=== PATIENT | male | born 1955 | race Caucasian/White ===

== ENCOUNTER 2019-09-05 15:43 | Emergency (ER) | payer BC, SELFPAY ==
[2019-09-05 15:45] VITALS: BP 153/83; PULSE 73; RESP 17; TEMP 36.7; O2SAT 95; BMI 27.8
--- NOTE | 2019-09-05 16:38 | ED.DCSUM_ITS ---
History of Present Illness Informant: Patient, Significant Other Occurred: Today Mechanism/Context: Injury Onset: Today Context: Sudden Onset Timing: Continuous Quality of Pain: Sharp Location: Right hand Current Severity: Moderate Maximum Severity: Moderate Worsened by: nothing Relieved by: nothing Associated Symptoms: Negative for: Parasthesia, Weakness, Loss of Funtion Narrative: 64-year-old [id number] male presents with a right hand laceration that occurred just prior to arrival when he was kicked by his scalp. He denies any other injuries. He was unable to get bleeding to stop via manual pressure. He is not on blood thinners. No numbness or tingling. No weakness. Unknown last tetanus. Tetanus Immunization: Unknown Prior similar symptoms: No Recent Illness/Hospitalization: No <Wally Carey - Last Filed: 09/05/19 17:39> <Collin Alfonso - Last Filed: 09/05/19 21:03> Chief Complaint: Laceration Past Medical History Prior records reviewed: Yes Past Medical History: None Surgical History: no surgical history Lives: With Family Smoking Status: Never smoker Alcohol: Occasional Drugs: None <Wally Carey - Last Filed: 09/05/19 17:39> <Collin Alfonso - Last Filed: 09/05/19 21:03> - Allergies and Home Meds Allergies/Adverse Reactions: Allergies No Known Allergies Allergy (Verified 09/05/19 15:45) Primary Care Physician: Navneet Rose MD [Primary Care Provider] - 10-14 Days suture removal Review of Systems All systems negative except as indicated General: Denies: Chills, Fever, Malaise Eyes: Denies: Visual changes - bilaterally, Blurred Vision - bilaterally, Diplopia ENT: Denies: Rhinorrhea, Sore throat Cardiovascular: Denies: Chest pain, Palpitations Respiratory: Denies: Dyspnea, Cough, Sputum, Dyspnea on exertion Gastrointestinal: Denies: Abdominal pain, Nausea, Vomiting, Diarrhea Genitourinary: Denies: Dysuria, Hematuria, Frequency Musculoskeletal: Reports: Extremity Pain. Denies: Myalgias, Arthralgias, Neck pain, Back pain, Swelling Skin: Reports: Abrasions. Denies: Rash, Abscess, Wounds Neurological: Denies: Headache, Weakness, Parasthesia, Numbness <Wally Carey - Last Filed: 09/05/19 17:39> Physical Exam Vital Signs/Narrative: Vital Signs Temp Pulse Resp BP Pulse Ox 09/05/19 15:45 98.0 F 73 17 153/83 H 95 Inital Vital Signs reviewed: Yes Right Hand: - - 5 cm laceration dorsum of right hand. Mild active bleeding. No pulsatile bleeding. No bony tenderness surrounding the area. Normal range of motion of all 5 fingers and of his wrist. General: Well nourished, Well developed Head: Normocephalic, Atraumatic Eyes: Perrl, EOMI ENT: No Trauma, Moist Mucous Membranes Neck: Nontender, Full ROM Cardiovascular: Regular rate, Regular rhythm Respiratory: No distress, CTA bilaterally, Chest nontender Abdomen: Soft, Nontender, Nondistended, Normal bowel sounds, No masses Back: Nontender Skin: Normal color, No rash, Trauma Neurological: Alert, Oriented x3 Psychological: Normal affect, Normal Mood <Wally Carey - Last Filed: 09/05/19 17:39> Vital Signs/Narrative: Vital Signs Pulse Resp BP Pulse Ox 09/05/19 17:04 69 16 116/62 96 09/05/19 16:59 69 16 116/76 96 <Collin Alfonso - Last Filed: 09/05/19 21:03> Diagnostic/Tx/Re-eval - Medical Decision Making Patient refused x-ray. Tetanus updated. Laceration was closed under sterile conditions with Betadine prep lidocaine was used locally for anesthesia. Thoroughly irrigated sterile saline via pressure wash syringe. No evidence of arterial bleeding foreign body tendon or ligament injury. Total of 6 sutures were used. Simple interrupted. Nylon. Number 4-0. Patient tolerated well. Will be discharged with a dressing advised on proper wound care will be placed on Keflex as this was a dirty injury. Follow-up in 10 to 14 days for removal of sutures. Return precautions given. <Wally Carey - Last Filed: 09/05/19 17:39> - Medical Decision Making Patient was seen with me. I did a [id number] evaluation with the patient. Patient presents with a laceration to his right hand that occurred today. Patient states he was kicked by his cow. Patient is unsure of his last tetanus. Patient denies any paresthesias or weakness. Vital signs are stable. Patient is afebrile. Patient is in no acute distress. Skin is warm dry. There is a 5 cm full-thickness linear laceration over the dorsal aspect of the right hand. There is no active bleeding noted. There are no foreign bodies. There is no bony crepitance or step-off. Neurovascular exam is intact. Patient declined x- rays. The wound was cleaned and irrigated with copious amounts of normal saline. The wound was closed with 6 simple interrupted #4-0 nylon sutures under sterile technique. Sterile gauze dressing was applied. Patient was given a prescription for Keflex. Patient was instructed to follow-up with his primary care physician in 7-10 days for wound check and suture removal. Patient und erstood and was agreeable with the plan. All questions were answered. <Collin Alfonso - Last Filed: 09/05/19 21:03> Procedures - Lacerations No standard instances Length: 1.97 in Depth: Skin Shape: Linear Prep: Sterile Conditions, Betadine Laceration Repair: Lidocaine, Local, Nerve block, Sutures, Wound explored Irrigated (ml): 120 Number of Sutures/Foster: 6 Suture Information: Ethilon, Simple, 4-0 <Wally Carey - Last Filed: 09/05/19 17:39> ED Disposition <Wally Carey - Last Filed: 09/05/19 17:39> <Collin Alfonso - Last Filed: 09/05/19 21:03> - Plan for ED Patient: Disposition: Home or Assisted Living Diagnosis: Laceration of right hand Instructions: LACERATION, Extrem (Suture, Staple or Tape) Prescriptions: Cephalexin [Keflex] 500 mg PO Q6 #40 cap Transmission Status: Received by [id number] [facility] Referrals: Navneet Rose MD [Primary Care Provider] - 10-14 Days suture removal
[2019-09-05] MEDS: Diphth,Pertuss(Acell),Tet Vac 0.5 ML Vial IM (16:52)
[2019-09-05 16:59] VITALS: BP 116/76; PULSE 69; RESP 16; O2SAT 96
[2019-09-05 17:04] VITALS: BP 116/62; PULSE 69; RESP 16; O2SAT 96
== END 2019-09-05 17:05 | disposition home or self-care (01) ==
LOC: ED 16:44
PROVIDERS: Emergency Provider Physician Assistant Medical; PCP Family Medicine
DX: S61.411A Laceration without foreign body of right hand, initial encounter (principal); Z23 Encounter for immunization; W55.22XA Struck by cow, initial encounter; Y93.89 Activity, other specified; Y92.89 Other specified places as the place of occurrence of the external cause; Y99.8 Other external cause status
CPT/HCPCS: 12002; 90471; 90715; 99283

== ENCOUNTER 2020-03-26 12:39 | Emergency (ER) | payer BC, SELFPAY ==
[2020-03-26 12:40] VITALS: BP 151/83; PULSE 65; RESP 17; TEMP 36.4; O2SAT 98; BMI 25.4
--- NOTE | 2020-03-26 12:56 | ED.VIS.GEN ---
History of Present Illness Chief Complaint: Head Injury Informant: Patient, Significant Other Onset: Today - Patient had a mechanical fall at 0600. Context: Sudden Onset Timing: Intermittent Quality: Presently no discomfort to his head, but reports neck stiffness Location: Contusion left brow and stiffness neck Current Severity: Mild Maximum Severity: Moderate Worsened by: Initial trauma Relieved by: Nothing Associated Symptoms: Initially nausea Narrative: A 65-year-old male with type 2 diabetes and hypertension who presents with closed head injury. He had mechanical fall at 0600. He was not knocked out. He was not dazed. He is not on an antiplatelet or anticoagulant. He did report nausea without vomiting. He initially did not have neck pain. Now reports neck stiffness. He denies paresthesia, anesthesia motors. He denies cardiac or respiratory symptoms. He denies double vision, blurred vision or loss of vision. He denies decreased hearing, ringing in his ears or ear pain. He denies drainage from his ears. Denies drainage from his nose. Prior similar symptoms: No Recent Illness/Hospitalization: Yes - August 2019 right hand laceration - Past Medical History (1) History of type 2 diabetes mellitus Status: Acute (2) History of hypertension Status: Acute Past Medical History - Allergies and Home Meds Allergies/Adverse Reactions: Allergies No Known Allergies Allergy (Verified 03/26/20 12:39) Primary Care Physician: Navneet Rose MD [Primary Care Provider] - Prior records reviewed: Yes Surgical History: no surgical history Lives: Spouse/ Significant Other Smoking Status: Never smoker Alcohol: Rare Drugs: None Review of Systems General: Denies: Chills, Fever, Malaise Eyes: Denies: Visual changes - bilaterally, Blurred Vision - bilaterally, Diplopia ENT: Reports: - - And read HPI. Denies: Bilateral ear pain, Rhinorrhea, Sore throat Cardiovascular: Denies: Chest pain, Palpitations Respiratory: Denies: Dyspnea, Cough, Dyspnea on exertion Gastrointestinal: Reports: Nausea. Denies: Abdominal pain, Vomiting, Diarrhea, Constipation, Melena, Hematochezia, -, - Musculoskeletal: Reports: Neck pain. Denies: Myalgias, Arthralgias, Back pain, Swelling, Extremity Pain Skin: Reports: Wounds. Denies: Rash, Abscess Neurological: Denies: Headache, Weakness, Parasthesia, Numbness Psych: Denies: Depression, Anxiety Hematologic: Denies: Easy bruising, Easy bleeding Allergy: Denies: Uticaria, Swelling of the mouth Physical Exam Vital Signs/Narrative: Vital Signs Temp Pulse Resp BP Pulse Ox 03/26/20 12:40 97.6 F L 65 17 151/83 H 98 Inital Vital Signs reviewed: Yes General: Well nourished, Well developed, No Acute Distress Head: Normocephalic, Atraumatic Eyes: Perrl, EOMI, - - There is soft tissue swelling with hematoma in the proximity of the left eyebrow. There is ecchymosis of the left upper eyelid. The levator mechanism is intact. There is no subconjunctival hemorrhage. Patient does have an APD noted. The APD is noted on the right. This is due to a prior clot. There is no hyperesthesia in focal nerve. There is no step-off of the infraorbital rim with palpation. There is no evidence of entrapment and patient denies diplopia with central gaze or upward gaze. ENT: Moist mucous membranes, No rhinorrhea, TM's clear, - - No septal deviation hematoma.. Negative for: Nasal congestion, Sinus tenderness Neck: Supple, Nontender, No lymphadenopathy, No JVD Cardiovascular: Regular rate, Regular rhythm, No murmurs, Normal S1, Normal S2 Respiratory: No distress, CTA bilaterally, Chest nontender Abdomen: Soft, Nontender, Nondistended, Normal bowel sounds Back: Nontender, Normal Inspection Extremities: Nontender, No edema Skin: Normal color, No rash Neurological: Alert, Oriented x3, Cranial nerves II-XII grossly intact, Normal Strength, Normal Sensation, Normal DTR, - - No clonus or Babinski sign right or left. Cerebellar testing is normal. Psychological: Normal affect, Normal Mood Diagnostic/Tx/Re-eval - Medical Decision Making She presents because family members who are in the healthcare profession recommended he have an evaluation. Patient was informed based on the [place] CT head rule imaging is not indicated. Since the event occurred 7 hours ago with a normal neurologic exam and only initial complaint of nausea imaging was not obtained. Tetanus is up-to-date. Patient be discharged home with appropriate home-going instructions. ED Disposition - Plan for ED Patient: Disposition: Home or Assisted Living Diagnosis: Concussion without loss of consciousness, initial encounter, Contusion of face, Hematoma left upper eyelid, Abrasion of forehead Instructions: ED Concussion, ED Abrasion Referrals: Navneet Rose MD [Primary Care Provider] - As Needed
== END 2020-03-26 13:12 | disposition home or self-care (01) ==
PROVIDERS: Emergency Provider Emergency Medicine; PCP Family Medicine
DX: S06.0X0A Concussion without loss of consciousness, initial encounter (principal); S00.12XA Contusion of left eyelid and periocular area, initial encounter; S00.81XA Abrasion of other part of head, initial encounter; E11.9 Type 2 diabetes mellitus without complications; I10 Essential (primary) hypertension; W18.30XA Fall on same level, unspecified, initial encounter; Y93.89 Activity, other specified; Y92.89 Other specified places as the place of occurrence of the external cause; Y99.8 Other external cause status
CPT/HCPCS: 99282

== ENCOUNTER 2021-05-04 15:01 | Emergency (ER) | payer MEDICARE, SELFPAY ==
[2021-05-04 15:02] VITALS: BP 141/113; PULSE 88; RESP 16; TEMP 36.3; O2SAT 97; BMI 26.4
--- NOTE | 2021-05-04 15:37 | EX.ED.UPPERE ---
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 Pacing caused a laceration to the palmar aspect of his left long finger distal phalanx. This occurred within the last several hours. His tetanus is up-to-date from 1 to 2 years ago. Patient is right-hand dominant. Denies any other injuries. Tetanus Immunization: <5 years Prior similar symptoms: Yes Recent Illness/Hospitalization: No PFSH PFSH Allergy/AdvReac Type Severity Reaction Status Date / Time No Known Allergies Allergy Verified 05/04/21 15:04 Social History Smoking Status: Never smoker ROS ROS ED ROS Narrative Denies recent illness. Review of Systems ROS Unobtainable: Denies due to encephalopathy Constitutional Constitutional ED: Denies fever(s) Eyes Eyes: Denies change in vision ENT ENT ED: Denies ear pain Cardiovascular Cardiovascular: Denies chest pain Respiratory/Chest Respiratory/Chest: Denies dyspnea Gastrointestinal Gastrointestinal: Denies abdominal pain Genitourinary Genitourinary ED: Denies dysuria Musculoskeletal Musculoskeletal: Denies myalgias Integumentary Denies rash Neurologic Neurologic: Denies headache(s) Psychiatric Psychiatric: Denies depression Endocrine Endocrinology: Denies polyuria Hematologic/Lymphatic Hematologic/Lymphatic: Denies easy bruising Allergic/Immunologic Allergic/Immunologic ED: Denies urticaria EXAM Physical Exam Narrative Exam Narrative: 6-year-old male no acute distress. HEENT, neck, heart, lung abdominal exam unremarkable. Moving all 4 extremities. Neurovascular intact. Left hand long finger distal phalanx palmar aspect there is a small semicircular laceration which does not need to be repaired. There is no active bleeding. No foreign body. He has full range of motion. No bony tenderness. No signs of infection. Patient I discussed he will clean it we will dress it it does not need to be repaired. Const Vital Signs: 05/04/21 15:02 Temperature 97.4 F L Temperature Source Temporal Pulse Rate 88 Respiratory Rate 16 Blood Pressure 141/113 H Blood Pressure Mean 122 Pulse Ox 97 Oxygen Delivery Method Room Air Positive well nourished and well developed; Negative for obese, cachectic, contractures or unkempt General Appearance ED: well developed and NAD; Negative for unkempt, cachectic or contractures Nutritional Appearance: Negative for cachectic or obese HEENT Reports moist mucous membranes normocephalic and atraumatic Eyes PERRL and EOMs intact bilaterally Neck full ROM and supple General: Negative for tenderness Chest Wall inspection of chest normal and palpation of chest normal Resp normal respiratory effort and clear to auscultation bilaterally Effort and Inspection: Negative for pain with movement Auscultation: Negative for rales or rhonchi Back/Spine no CVA tenderness General Back: Negative for CVA tenderness Extremity normal to inspection and full ROM Extremity Narrative: Semicircular laceration left long finger palmar aspect distal phalanx. No foreign body. Full range of motion. Neurovascular intact. No infection. No bleeding. Neuro oriented x3 and moves all extremities Sensorium / Orientation: alert, oriented to person, oriented to place and oriented to time; Negative for orientation impaired, lethargic or stuporous Motor Exam: strength 5/5 throughout Psych mental status grossly normal Appearance: Negative for unkempt Mood & Affect: Negative for depressed Skin Lesions: no lesions Rashes: no rashes Trauma: laceration MDM MDM MDM Narrative Medical decision making narrative: Left long finger laceration does not need to be repaired. There is no bleeding there is good approximation. Wound to be cleaned and dressed antibiotic ointment applied. Patient was instructed on wound care. Return if any signs of infection. Discharge Plan Triage Chief Complaint: Laceration ED Provider: Candido Au Dx/Rx/DC Orders Clinical Impression: History of type 2 diabetes mellitus, Laceration of left hand Instructions: ED Laceration Small or ... Primary Care Provider: Navneet Rose Referrals: Navneet Rose MD [Primary Care Provider] - 1 Week if not improving Activity Restrictions/Additional Instructions: Keep wound clean and dry. If our dressings are dry and clean you can leave it on for 3 to 4 days. Then begin cleaning it daily with soap and water and apply antibiotic ointment and keep it covered. Any signs of infection such as redness, swelling, pus Disposition Disposition: Home, Self Care
[2021-05-04 15:55] VITALS: PULSE 90; RESP 18; O2SAT 97
== END 2021-05-04 16:00 | disposition home or self-care (01) ==
PROVIDERS: Emergency Provider Emergency Medicine; PCP Family Medicine
DX: S61.213A Laceration without foreign body of left middle finger without damage to nail, initial encounter (principal); E11.9 Type 2 diabetes mellitus without complications; W23.0XXA Caught, crushed, jammed, or pinched between moving objects, initial encounter; Y93.89 Activity, other specified; Y92.79 Other farm location as the place of occurrence of the external cause; Y99.8 Other external cause status
CPT/HCPCS: 99283